=== PATIENT | male | born 1960 | race Caucasian/White ===

== ENCOUNTER 2016-12-14 15:40 | Inpatient (IN) | payer OTHER ==
[2016-12-14 16:03] VITALS: BMI 31.9
--- NOTE | 2016-12-14 17:06 | HP ---
COWS - Scale Resting Pulse: 1= DC 81-100 Sweatin=Flushed/Facial Moisture Restless Observation: 3= Extraneous Movement Pupil Size: 2= Moderately Dilated Bone or Joint Aches: 2= Severe Diffuse Aches Runny Nose/ Eye Tearin= Runny Nose/Eyes GI Upset > 30mins: 2= Nausea/Diarrhea Tremor Observation: 2= Slight Tremor Visible Yawning Observation: 2= >3x During Session Anxiety or Irritability: 2=Irritable/Anxious Goose Flesh Skin: 3=Piloerection COWS Score: 23 Admission ROS S - HPI Chief Complaint: WITHDRAWAL SX. Allergies/Adverse Reactions: Allergies Allergy/AdvReac Type Severity Reaction Status Date / Time Penicillins Allergy Severe Rash Verified 12/14/16 16:42 History of Present Illness: 56 Y/O MAN WITH A LONG HX. OF DRUG DEPENDENCE IS ADMITTED FOR DETOX. PT. HAS BEEN IN PREVIOUS DETOX DENIES SIGNIFICANT PERIOD DRUG FREE SINCE 2000. Exam Limitations: No Limitations - Ebola screening Have you traveled outside of the country in the last 21 days: No Have you had contact with anyone from an Ebola affected area: No Have you been sick,other than usual withdrawal symptoms: No Do you have a fever: No - Review of Systems Constitutional: Diaphoresis EENT: reports: Nose Congestion Respiratory: reports: Shortness of Breath (HAS COPD) Cardiac: reports: No Symptoms Reported GI: reports: Nausea, Abdominal cramping : reports: No Symptoms Reported Musculoskeletal: reports: Back Pain, Joint Pain, Muscle Pain Integumentary: reports: Sweating Neuro: reports: Headache, Numbness (FEET AT TIMES), Tingling, Tremors Endocrine: reports: No Symptoms Reported Hematology: reports: No Symptoms Reported Psychiatric: reports: No Sypmtoms Reported Other Systems: Reviewed and Negative Patient History - Patient Medical History Hx Anemia: No Hx Asthma: No Hx Chronic Obstructive Pulmonary Disease (COPD): Yes Hx Cancer: No Hx Cardiac Disorders: No Hx Congestive Heart Failure: No Hx Hypertension: No Hx Hypercholesterolemia: Yes (NO MEDS) Hx Pacemaker: No HX Cerebrovascular Accident: No Hx Seizures: No Hx Dementia: No Hx Diabetes: No Hx Gastrointestinal Disorders: No Hx Liver Disease: Yes Hx Genitourinary Disorders: No Hx Sexually Transmitted Disorders: No Hx Renal Disease (ESRD): No Hx Thyroid Disease: Yes Hx Human Immunodeficiency Virus (HIV): No Hx Hepatitis C: Yes Hx Depression: Yes Hx Suicide Attempt: Yes (tried to overdose last year.) Hx Bipolar Disorder: No Hx Schizophrenia: No - Patient Surgical History Past Surgical History: Yes Other Surgical History: Carpal tunnel sx both hands R inguinal hernia repairs. - PPD History Previous Implant?: Yes Documented Results: Negative w/o proof Implanted On Prior [facility] Admission?: No PPD to be Administered?: Yes - Smoking Cessation Smoking history: Current every day smoker Have you smoked in the past 12 months: Yes Aproximately how many cigarettes per day: 30 Hx Chewing Tobacco Use: No Initiated information on smoking cessation: Yes 'Breaking Loose' booklet given: 12/14/16 - Substance & Tx. History Hx Alcohol Use: No (NOT CURRENTLY) Hx Substance Use: Yes Substance Use Type: Heroin, Tranquilizers Hx Substance Use Treatment: Yes (DETOX) - Substances Abused Heroin Route: Injection Frequency: Daily Amount used: 10-12 bags Age of first use: 39 Date of Last Use: 12/14/16 Alprazolam (Xanax) Route: Oral Frequency: Daily Amount used: 2-4mg Age of first use: 40 Date of Last Use: 12/12/16 Family Disease History - Family Disease History Family Disease History: Other: Father (ALCOHOLIC), Mother (ALCOHOLIC) Admission Physical Exam S - Vital Signs Vital Signs: Vital Signs - 24 hr 12/14/16 16:02 Temperature 97.4 F L Pulse Rate 88 Respiratory 18 Rate Blood Pressure 127/71 - Physical General Appearance: Yes: Irritable, Sweating, Anxious HEENTM: Yes: Nasal Congestion, Rhinorrhea Respiratory: Yes: Chest Non-Tender, Lungs Clear, Normal Breath Sounds Neck: Yes: Supple Breast: Yes: Breast Exam Deferred Cardiology: Yes: Regular Rhythm, Regular Rate, S1, S2 Abdominal: Yes: Normal Bowel Sounds, Non Tender, Soft Genitourinary: Yes: Within Normal Limits Back: Yes: Within Normal Limits Musculoskeletal: Yes: Within Normal Limits Extremities: Yes: Tremors Neurological: Yes: Fully Oriented, Alert Integumentary: Yes: Diaphoresis, Track Santos Lymphatic: Yes: Within Normal Limits - Diagnostic (1) Opioid dependence with withdrawal Current Visit: Yes Status: Acute (2) Sedative, hypnotic or anxiolytic dependence with withdrawal, uncomplicated Current Visit: Yes Status: Acute (3) Hypothyroidism Current Visit: Yes Status: Acute Qualifiers: Hypothyroidism type: other Qualified Code(s): E03.8 - Other specified hypothyroidism (4) COPD (chronic obstructive pulmonary disease) Current Visit: Yes Status: Acute Qualifiers: COPD type: emphysema Emphysema type: other Qualified Code(s): J43.8 - Other emphysema Cleared for Admission [facility] - Detox or Rehab [facility] Level of Care: Medically Managed Detox Regimen/Protocol: Methadone S Breath Alcohol Content Breath Alcohol Content: 0 Urine Drug Screen - Results Drug Screen Negative: No Urine Drug Screen Results: SUZE-Cocaine, OPI-Opiates, BZO-Benzodiazepines
[2016-12-14] MEDS ORDERED: MAGNESIUM CITRATE 300 ML BOTTLE PO PRN (17:14)
[2016-12-14] MEDS ORDERED: LOPERAMIDE HCL 2 MG CAPSULE PO PRN (17:14)
[2016-12-14] MEDS ORDERED: P-EPHED 60MG/TRIPROLIDI 2.5MG TABLET PO PRN (17:14)
[2016-12-14] MEDS ORDERED: MAGNESIUM HYDROX 2400MG/30ML ORAL SUSPENSION 30 ML CUP PO PRN (17:14)
[2016-12-14] MEDS ORDERED: IBUPROFEN 400 MG TABLET (FP) PO PRN (17:14)
[2016-12-14] MEDS ORDERED: ACETAMINOPHEN 325 MG TABLET (FP) PO PRN (17:14)
[2016-12-14] MEDS ORDERED: MENTHOL/PHENOL 1 EACH UD MM PRN (17:14)
[2016-12-14] MEDS ORDERED: guaiFENesin/D-METHORPHAN HB 10 ML UNIT-DOSE CUPS PO PRN (17:14)
[2016-12-14] MEDS ORDERED: MAG HYDROX/AL HYDROX/SIMETH 30 ML UNIT-DOSE CUP PO PRN (17:14)
[2016-12-14] MEDS ORDERED: hydrOXYzine PAMOATE 50 MG CAPSULE (FP) PO PRN (17:20)
[2016-12-14] MEDS ORDERED: cloNIDine HCL 0.1 MG TABLET PO ONE ×2 (17:22→18:15)
[2016-12-14] MEDS ORDERED: ALBUTEROL SO4 6.7 GM HFA INHALER IH PRN (17:23)
[2016-12-14] MEDS ORDERED: LEVOTHYROXINE NA 125 MCG TABLET (FP) PO SCH (17:30)
[2016-12-14] MEDS ORDERED: diazePAM 5 MG TABLET PO ONE (18:00)
[2016-12-14] MEDS ORDERED: METHADONE HCL 10 MG TABLET (FOR DETOX USE ONLY) PO ONE ×2 (18:15→23:00)
[2016-12-14] MEDS: NICOTINE 21 MG/24 HOURS TOPICAL PATCH TD SCH (18:35)
--- NOTE | 2016-12-14 18:42 | PN ---
[facility] Progress Note Note: RECEIVED PHARMACIST CALL METHADONE WITH HYDROXYZINE QTC NEEDED TO BE MONITORED DISCONTINUE HYDROXYZINE CONTINUE DETOX
[2016-12-14] MEDS ORDERED: ONDANSETRON *ODT* 4 MG TABLET SL PRN (21:23)
[2016-12-14 21:56] LABS: URINE APPEARANCE CLEAR; URINE BILIRUBIN NEGATIVE (NEGATIVE); URINE BLOOD NEGATIVE (NEGATIVE); URINE COLOR LTYELLOW; URINE GLUCOSE (UA) NEGATIVE (NEGATIVE); URINE KETONE NEGATIVE (NEGATIVE); URINE LEUK ESTERASE NEGATIVE (NEGATIVE); URINE NITRITE NEGATIVE (NEGATIVE); URINE PROTEIN NEGATIVE (NEGATIVE); URINE UROBILINOGEN NEGATIVE E.U./dl (0.2-1.0)
[2016-12-14] MEDS ORDERED: diphenhydrAMINE HCL 50 MG CAPSULE PO PRN (22:00)
[2016-12-14] MEDS: diazePAM 5 MG TABLET PO SCH (22:11)
[2016-12-14] MEDS: THIAMINE HCL 100 MG TABLET (FP) PO SCH (22:11)
[2016-12-14] MEDS: CYCLOBENZAPRINE HCL 10 MG TABLET (FP) PO SCH (22:12)
[2016-12-14] MEDS: cloNIDine HCL 0.1 MG TABLET PO SCH (22:12)
[2016-12-14] MEDS: NICOTINE POLACRILEX 4 MG GUM BUC PRN (22:12)
[2016-12-15] MEDS ORDERED: LEVOTHYROXINE NA 25 MCG TABLET (FP) ONE (06:08)
[2016-12-15] MEDS ORDERED: LEVOTHYROXINE NA 100 MCG TABLET (FP) ONE (06:08)
[2016-12-15] MEDS: diazePAM 5 MG TABLET PO SCH ×2 (06:30→14:45)
[2016-12-15] MEDS: CYCLOBENZAPRINE HCL 10 MG TABLET (FP) PO SCH (06:30)
[2016-12-15] MEDS: LEVOTHYROXINE 25 MCG, LEVOTHYROXINE 100 MCG PO SCH (06:43)
--- NOTE | 2016-12-15 08:23 | CONSULT ---
[facility] Psychiatric Consult - Data Date of interview: 12/15/16 Admission source: [facility] Identifying data: This is 56 years old male with psychiatric hospitalization history intoxicated with: Heroin, Xanax, Cocaine and Nicotine Substance Abuse History: - Smoking Cessation. Smoking history: Current every day smoker. Have you smoked in the past 12 months: Yes. Aproximately how many cigarettes per day: 30. Hx Chewing Tobacco Use: No. Initiated information on smoking cessation: Yes. 'Breaking Loose' booklet given: 12/14/16. - Substance & Tx. History. Hx Alcohol Use: No (NOT CURRENTLY). Hx Substance Use: Yes. Substance Use Type: Heroin, Tranquilizers. Hx Substance Use Treatment: Yes ( DETOX). - Substances Abused. Heroin. Route: Injection. Frequency: Daily. Amount used: 10-12 bags. Age of first use: 39. Date of Last Use: 12/14/16. Alprazolam (Xanax). Route: Oral. Frequency: Daily. Amount used: 2-4mg. Age of first use: 40. Date of Last Use: 12/12/16 Medical History: COPD, Hypothyroiditis, Asthma Psychiatric History: Patient reprots most recent psychioatric admission on 2015 at [facility] after OD with medications, reports no sucidal attempts since then, reports history of depression, reports no medications taking prior to admission Physical/Sexual Abuse/Trauma History: Denies Additional Comment: Observation. Detox Unit Care Protocol Mental Status Exam - Mental Status Exam Alert and Oriented to: Person Cognitive Function: Fair Patient Appearance: Unkempt Mood: Sad Affect: Mood Congruent Patient Behavior: Cooperative Speech Pattern: Appropriate Voice Loudness: Normal Thought Process: Goal Oriented Thought Disorder: Being Controlled Hallucinations: Denies Suicidal Ideation: Denies Homicidal Ideation: Denies Insight/Judgement: Fair Sleep: Difficulty falling asleep Appetite: Weight gain Muscle strength/Tone: Normal Gait/Station: Normal Additional Comments: Observation. Detox Unit Care Protocol Psychiatric Findings - Problem List ([place] 1, 2,3) (1) Hypothyroidism Current Visit: Yes Status: Acute Qualifiers: Hypothyroidism type: other Qualified Code(s): E03.8 - Other specified hypothyroidism; E06.3 - Autoimmune thyroiditis (2) Opioid dependence with withdrawal Current Visit: Yes Status: Acute (3) Sedative, hypnotic or anxiolytic dependence with withdrawal, uncomplicated Current Visit: Yes Status: Acute (4) Cocaine dependence Current Visit: Yes Status: Acute (5) Nicotine dependence Current Visit: Yes Status: Acute - Initial Treatment Plan Initial Treatment Plan: Observation. Detox Unit Care Protocol
[2016-12-15] MEDS ORDERED: METHADONE HCL 10 MG TABLET (FOR DETOX USE ONLY) PO SCH (10:00)
--- NOTE | 2016-12-15 10:37 | EKG ---
Test Reason : Blood Pressure : / mmHG Vent. Rate : 081 BPM Atrial Rate : 081 BPM P-R Int : 178 ms QRS Dur : 080 ms QT Int : 354 ms P-R-T Axes : 038 088 084 degrees QTc Int : 411 ms NORMAL SINUS RHYTHM LOW VOLTAGE QRS BORDERLINE ECG NO PREVIOUS ECGS AVAILABLE Confirmed by SINGH BILLS, JEREMIAH ([id number]) on 12/15/2016 10:37:26 AM Referred By: Confirmed By:JEREMIAH WINTERS MD
[2016-12-15] MEDS: PRENATAL VITAMINS W/ FOLIC ACID TABLET (FP) PO SCH (11:07)
[2016-12-15] MEDS: cloNIDine HCL 0.1 MG TABLET PO SCH (11:08)
[2016-12-15] MEDS: diazePAM 5 MG TABLET PO PRN ×2 (11:08→17:21)
[2016-12-15] MEDS: NICOTINE 21 MG/24 HOURS TOPICAL PATCH TD SCH (11:10)
[2016-12-15] MEDS ORDERED: IBUPROFEN 600 MG TABLET (FP) PO PRN (13:09)
--- NOTE | 2016-12-15 13:13 | PN ---
S COWS - Scale Resting Pulse: 0= VT 80 or Below Sweatin=Flushed/Facial Moisture Restless Observation: 1= Difficult to Sit Still Pupil Size: 0= Normal to Room Light Bone or Joint Aches: 2= Severe Diffuse Aches Runny Nose/ Eye Tearin= Runny Nose/Eyes GI Upset > 30mins: 1= Stomach Cramp Tremor Observation of Outstretched Hands: 2= Slight Tremor Visible Yawning Observation: 2= >3x During Session Anxiety or Irritability: 2=Irritable/Anxious Goose Flesh Skin: 3=Piloerection COWS Score: 17 S Progress Note (SOAP) Subjective: interrupted sleep agitation anxiety body aches irritable sweats shakes Objective: 12/15/16 13:11 Vital Signs Temperature 97.9 F 12/15/16 10:28 Pulse Rate 79 12/15/16 10:28 Respiratory Rate 20 12/15/16 10:28 Blood Pressure 116/75 12/15/16 10:28 O2 Sat by Pulse Oximetry (%) Laboratory Tests 12/14/16 20:30 Urine Color Ltyellow Urine Appearance Clear Urine pH 7.0 Ur Specific [place] 1.012 Urine Protein Negative Urine Glucose (UA) Negative Urine Ketones Negative Urine Blood Negative Urine Nitrite Negative Urine Bilirubin Negative Urine Urobilinogen Negative Ur Leukocyte Esterase Negative labs re-ordered awake/alert ambulating no acute distress Assessment: 12/15/16 13:12 withdrawal sx Plan: continue detox increase fluids labs pending motrin 600mg prn flexiril 10mg prn clonidine 0.1mg bid
[2016-12-15] MEDS: CYCLOBENZAPRINE HCL 10 MG TABLET (FP) PO PRN (15:08)
[2016-12-15] MEDS: NICOTINE POLACRILEX 4 MG GUM BUC PRN ×2 (15:36→17:23)
[2016-12-16] MEDS: THIAMINE HCL 100 MG TABLET (FP) PO SCH (00:16)
[2016-12-16] MEDS: diazePAM 5 MG TABLET PO SCH (00:16)
[2016-12-16] MEDS: cloNIDine HCL 0.1 MG TABLET PO SCH ×2 (00:16→10:43)
[2016-12-16] MEDS: CYCLOBENZAPRINE HCL 10 MG TABLET (FP) PO PRN (05:12)
[2016-12-16] MEDS: LEVOTHYROXINE 25 MCG, LEVOTHYROXINE 100 MCG PO SCH (07:59)
[2016-12-16] MEDS ORDERED: METHADONE HCL 5 MG TABLET (FOR DETOX USE ONLY) PO SCH (10:00)
[2016-12-16] MEDS ORDERED: diazePAM 5 MG TABLET PO SCH (10:00)
[2016-12-16 10:05] LABS: BASOPHIL 0.7 % (0-2.0); EOSINOPHIL 4.8 % (0-4.5); MCH 30.7 pg (25.7-33.7); MCHC 33.5 g/dl (32.0-35.9); MEAN CELL VOLUME 91.5 fl (80-96); MEAN PLT VOLUME 8.4 fl (7.5-11.1); NEUTROPHILS 57.4 % (42.8-82.8); PLATELET COUNT 177 K/MM3 (134-434); RDW 13.3 % (11.9-15.9)
[2016-12-16 10:11] LABS: ALBUMIN 3.4 g/dl (3.4-5.0); BILIRUBIN,TOTAL 0.4 mg/dL (0.2-1.0); CALCIUM 8.6 mg/dL (8.5-10.1); CREATININE 1.4 mg/dL (0.7-1.3); TOT PROT 7.3 g/dl (6.4-8.2)
[2016-12-16 10:29] VITALS: BP 124/76; PULSE 78; TEMP 97.8
[2016-12-16] MEDS: NICOTINE 21 MG/24 HOURS TOPICAL PATCH TD SCH (10:42)
[2016-12-16] MEDS: PRENATAL VITAMINS W/ FOLIC ACID TABLET (FP) PO SCH (10:43)
--- NOTE | 2016-12-16 10:59 | PN ---
S CIWA - CIWA Score Nausea/Vomitin Muscle Tremors: 3 Anxiety: 3 Agitation: 2 Paroxysmal Sweats: 1-Minimal Palms Moist Orientation: 0-Oriented Tacttile Disturbances: 1-Very Mild Itch/Numbness Auditory Disturbances: 1-Very Mild Visual Disturbances: 1-Very Mild Sensitivity Headache: 2-Mild CIWA-Ar Total Score: 17 [facility] COWS - Scale Resting Pulse: 0= NV 80 or Below Sweatin= Chills/Flushing Restless Observation: 3= Extraneous Movement Pupil Size: 1= Pupils >than Normal Bone or Joint Aches: 2= Severe Diffuse Aches Runny Nose/ Eye Tearin= Nasal Congestion GI Upset > 30mins: 3= Vomiting/Diarrhea Tremor Observation of Outstretched Hands: 2= Slight Tremor Visible Yawning Observation: 1= 1-2x During Session Anxiety or Irritability: 2=Irritable/Anxious Goose Flesh Skin: 0=Smooth Skin COWS Score: 16 [facility] Progress Note (SOAP) Subjective: ALERT,IRRITABLE,ANXIOUS,INTERRUPTED SLEEP,PAIN IN THE BODY AND BACK Objective: 12/16/16 11:01 Vital Signs Temperature 97.8 F 12/16/16 10:28 Pulse Rate 78 12/16/16 10:28 Respiratory Rate 18 12/16/16 10:28 Blood Pressure 124/76 12/16/16 10:28 O2 Sat by Pulse Oximetry (%) Laboratory Last Values WBC 7.0 K/mm3 (4.0-10.0) 12/16/16 07:00 RBC 4.82 M/mm3 (4.00-5.60) 12/16/16 07:00 Hgb 14.8 GM/dL (11.7-16.9) 12/16/16 07:00 Hct 44.1 % (35.4-49) 12/16/16 07:00 MCV 91.5 fl (80-96) 12/16/16 07:00 MCHC 33.5 g/dl (32.0-35.9) 12/16/16 07:00 RDW 13.3 % (11.9-15.9) 12/16/16 07:00 Plt Count 177 K/MM3 (134-434) 12/16/16 07:00 MPV 8.4 fl (7.5-11.1) 12/16/16 07:00 Neutrophils % 57.4 % (42.8-82.8) 12/16/16 07:00 Lymphocytes % 29.8 % (8-40) 12/16/16 07:00 Monocytes % 7.3 % (3.8-10.2) 12/16/16 07:00 Eosinophils % 4.8 % (0-4.5) H 12/16/16 07:00 Basophils % 0.7 % (0-2.0) 12/16/16 07:00 Sodium 139 mmol/L (136-145) 12/16/16 07:00 Potassium 3.9 mmol/L (3.5-5.1) 12/16/16 07:00 Chloride 102 mmol/L (98-107) 12/16/16 07:00 Carbon Dioxide 29 mmol/L (21-32) 12/16/16 07:00 Anion Gap 8 (8-16) 12/16/16 07:00 BUN 9 mg/dL (7-18) 12/16/16 07:00 Creatinine 1.4 mg/dL (0.7-1.3) H 12/16/16 07:00 Creat Clearance w eGFR 52.24 (>60) 12/16/16 07:00 Random Glucose 97 mg/dL (74-106) 12/16/16 07:00 Calcium 8.6 mg/dL (8.5-10.1) 12/16/16 07:00 Total Bilirubin 0.4 mg/dL (0.2-1.0) 12/16/16 07:00 AST 23 U/L (15-37) 12/16/16 07:00 ALT 23 U/L (12-78) 12/16/16 07:00 Alkaline Phosphatase 60 U/L (45-117) 12/16/16 07:00 Total Protein 7.3 g/dl (6.4-8.2) 12/16/16 07:00 Albumin 3.4 g/dl (3.4-5.0) 12/16/16 07:00 Urine Color Ltyellow 12/14/16 20:30 Urine Appearance Clear 12/14/16 20:30 Urine pH 7.0 (5.0-8.0) 12/14/16 20:30 Ur Specific [place] 1.012 (1.001-1.035) 12/14/16 20:30 Urine Protein Negative (NEGATIVE) 12/14/16 20:30 Urine Glucose (UA) Negative (NEGATIVE) 12/14/16 20:30 Urine Ketones Negative (NEGATIVE) 12/14/16 20:30 Urine Blood Negative (NEGATIVE) 12/14/16 20:30 Urine Nitrite Negative (NEGATIVE) 12/14/16 20:30 Urine Bilirubin Negative (NEGATIVE) 12/14/16 20:30 Urine Urobilinogen Negative E.U./dl (0.2-1.0) 12/14/16 20:30 Ur Leukocyte Esterase Negative (NEGATIVE) 12/14/16 20:30 LABS PENDING Assessment: 12/16/16 11:02 WITHDRAWAL SYMPTOM Plan: CONTINUE DETOX
--- NOTE | 2016-12-16 11:03 | PN ---
[facility] Progress Note Note: PATIENT DID NOT WANT TO COMPLETE TREATMENT,SIGNED RELEASE AMA,SEEN BY COUNSELOR,
--- NOTE | 2016-12-16 11:08 | DS ---
[facility] Detox Discharge Summary Admission Date: 12/14/16 Discharge Date: 12/16/16 - History Present History: Opioid Dependence, Sedative Dependence Additional Comments: PATIENT DID NOT WANT TO COMPLETE TREATMENT,SEEN BY COUNSELOR,ALYSON JAMISON, ADVISE FOLLOW UP WITH PMD FOR MEDICAL PROBLEM PATIENT HAS ALL MEDICATIONS AT HOME Pertinent Past History: COPD HYPOTHYROIDISM - Physical Exam Results Vital Signs: Vital Signs Temperature 97.8 F 12/16/16 10:28 Pulse Rate 78 12/16/16 10:28 Respiratory Rate 18 12/16/16 10:28 Blood Pressure 124/76 12/16/16 10:28 O2 Sat by Pulse Oximetry (%) Pertinent Admission Physical Exam Findings: WITHDRAWAL SYMPTOM - Medication Discharge Medications: Ambulatory Orders Albuterol Sulfate Inhaler - [Ventolin Hfa Inhaler -] 2 inh PO Q4H PRN 12/14/16 Levothyroxine [Synthroid -] 125 mcg PO DAILY 12/14/16 - Diagnosis (1) COPD (chronic obstructive pulmonary disease) Current Visit: Yes Status: Acute Qualifiers: COPD type: emphysema Emphysema type: other Qualified Code(s): J43.8 - Other emphysema (2) Cocaine dependence Current Visit: Yes Status: Acute (3) Hypothyroidism Current Visit: Yes Status: Acute Qualifiers: Hypothyroidism type: other Qualified Code(s): E03.8 - Other specified hypothyroidism; E06.3 - Autoimmune thyroiditis (4) Nicotine dependence Current Visit: Yes Status: Acute (5) Opioid dependence with withdrawal Current Visit: Yes Status: Acute (6) Sedative, hypnotic or anxiolytic dependence with withdrawal, uncomplicated Current Visit: Yes Status: Acute - AMShi Did Patient Leave Against Medical Advice: Yes
[2016-12-16] MEDS ORDERED: CLOTRIMAZOLE/BETAMET DIPROP TOPICAL CREAM 45 GM TUBE TP SCH (11:15)
[2016-12-18] MEDS ORDERED: METHADONE HCL 10 MG TABLET (FOR DETOX USE ONLY) PO SCH (10:00)
[2016-12-18] MEDS ORDERED: diazePAM 5 MG TABLET PO SCH (10:00)
[2016-12-19] MEDS ORDERED: METHADONE HCL 5 MG TABLET (FOR DETOX USE ONLY) PO SCH (06:00)
== END 2016-12-16 11:46 | disposition left against medical advice (07) | DRG 894 ==
LOC: YASAS 15:40 → Y6N 17:45
PROVIDERS: ADMIT Internal Medicine; ATTEND Internal Medicine
PROC: HZ2ZZZZ Detoxification Services for Substance Abuse Treatment (ICD-10-PCS; principal; 2016-12-16)
DX: F11.23 Opioid dependence with withdrawal (principal); F14.20 Cocaine dependence, uncomplicated; F13.230 Sedative, hypnotic or anxiolytic dependence with withdrawal, uncomplicated; F17.210 Nicotine dependence, cigarettes, uncomplicated; J43.8 Other emphysema; E03.8 Other specified hypothyroidism; E06.3 Autoimmune thyroiditis
CPT/HCPCS: 36415; 80053; 81003; 85025; 86593; 93005; 93010